=== PATIENT | male | born 1980 | race Two or more races ===

== ENCOUNTER 2020-07-07 04:26 | Day surgery (SDC) | payer OTHER ==
[2020-07-07 10:47] VITALS: BMI 29.7
[2020-07-07] MEDS ORDERED: MIDAZOLAM HCL 2 MG/2 ML SINGLE DOSE VIAL ONE (13:01)
[2020-07-07] MEDS ORDERED: PROPOFOL 20 ML ONE (13:01)
--- NOTE | 2020-07-07 14:10 | OP ---
Operative Note - Note: Operative Date: 07/07/20 Pre-Operative Diagnosis: Right renal stone Operation: Right ESWL Findings: 7 mm lower pole renal stone Post-Operative Diagnosis: Same as Pre-op Surgeon: Ronnell Grande Anesthesia: Regional Estimated Blood Loss (mls): 0 Operative Report Dictated: Yes
[2020-07-07 14:54] VITALS: BP 120/72; PULSE 73; TEMP 97
--- NOTE | 2020-07-07 17:22 | OP ---
DATE OF OPERATION: 07/07/2020 PREOPERATIVE DIAGNOSIS: Right renal stone. POSTOPERATIVE DIAGNOSIS: Right renal stone. PROCEDURE: Right extracorporeal shockwave lithotripsy. ATTENDING: Pee Grande M.D. ANESTHESIA: Fractional. DESCRIPTION OF PROCEDURE: Patient was brought in the operating room, placed in a supine position on the operating room table. Ultrasonography and fluoroscopy were performed. A right-sided lower pole stone was identified which measured 7 mm. Anesthesia and preoperative antibiotics were then administered. 2500 impulses at 17 joules of power were administered to the stone with excellent fragmentation noted under realtime ultrasonography and fluoroscopy. The patient tolerated the procedure very well. DISPOSITION: To recovery room. PEE DONALDSON M.D. [id number]
[2020-07-07] MEDS ORDERED: ONDANSETRON 4 MG/2 ML VIAL IVPUSH PRN (17:42)
[2020-07-07] MEDS ORDERED: oxyCODONE HCL 5 MG TABLET PO PRN (17:42)
[2020-07-07] MEDS ORDERED: ACETAMINOPHEN 325 MG TABLET (FP) PO PRN (17:42)
[2020-07-07] MEDS ORDERED: LACTATED RINGERS SOLUTION 1,000 ML IV SCH (17:45)
== END 2020-07-07 14:57 | disposition home or self-care (01) ==
LOC: JASU-SURG 04:26
PROVIDERS: ATTEND Urology
PROC: 0TF3XZZ Fragmentation in Right Kidney Pelvis, External Approach (ICD-10-PCS; principal; 2020-07-07 12:15)
DX: N20.0 Calculus of kidney (principal)

== ENCOUNTER 2020-12-16 13:15 | Inpatient (IN) | payer OTHER ==
[2020-12-16] MEDS ORDERED: SODIUM CHLORIDE 0.9% 500 ML INFUS.BAG IV ONE ×2 (13:55→15:42)
[2020-12-16] MEDS ORDERED: ONDANSETRON 4 MG/2 ML VIAL IVPUSH ONE (13:55)
[2020-12-16] MEDS ORDERED: PANTOPRAZOLE SODIUM 40 MG VIAL IVPUSH ONE (13:55)
[2020-12-16 15:19] LABS: INR 1.14 (0.83-1.09); PROTHROMBIN TIME (PATIENT) 13.7 SEC (9.7-13.0)
[2020-12-16 15:25] LABS: BASO % 1.1 % (0-2.0); EOS % 0.4 % (0-4.5); HEMATOCRIT 46.8 % (35.4-49); MCH 31.3 pg (25.7-33.7); MCHC 34.1 g/dl (32.0-35.9); MEAN CELL VOLUME 91.5 fl (80-96); MEAN PLT VOLUME 7.5 fl (7.5-11.1); MONO % 5.1 % (3.8-10.2); NEUT % 86.4 % (42.8-82.8); PLATELET COUNT 354 K/MM3 (134-434); RBC 5.12 M/mm3 (4.00-5.60); RDW 12.7 % (11.9-15.9); WHITE BLOOD COUNT 17.5 K/mm3 (4.0-10.0)
[2020-12-16 15:27] LABS: CALCIUM 9.8 mg/dL (8.5-10.1)
[2020-12-16 15:28] LABS: ALBUMIN 4.2 g/dl (3.4-5.0); BLOOD UREA NITROGEN 11.1 mg/dL (7-18)
[2020-12-16 15:30] LABS: CREATININE 1.3 mg/dL (0.55-1.3)
[2020-12-16 15:31] LABS: TOT PROT 7.5 g/dl (6.4-8.2)
[2020-12-16] MEDS ORDERED: morphine CARPU-JECT 2 MG/1 ML DISP.SYRIN IVPUSH ONE ×2 (15:59→20:41)
[2020-12-16] MEDS ORDERED: MORPHINE SULFATE 2 MG/ML VIAL ONE ×2 (17:44→20:46)
[2020-12-16] MEDS ORDERED: PIPERACILLIN/TAZOB 4.5 GM 4.5 GM in DEXTROSE 5%-WATER 100 ML IVPB ONE (18:34)
[2020-12-16] MEDS ORDERED: PIPERACILLIN/TAZOB 4.5 GM 4.5 GM/100 ML BAG IVPB ONE ×2 (18:41→18:53)
[2020-12-16] MEDS ORDERED: SODIUM CHLORIDE 1,000 ML IV SCH ×3 (18:45→22:45)
[2020-12-16 19:59] LABS: INR 1.16 (0.83-1.09)
[2020-12-16 20:01] LABS: ACTIVATED PTT 32.8 SECONDS (25.2-36.5)
[2020-12-16 20:12] LABS: PH,URINE 7.5 (5.0-8.0); URINE APPEARANCE Clear; URINE BILIRUBIN Negative (NEGATIVE); URINE COLOR Yellow; URINE GLUCOSE (UA) Negative (NEGATIVE); URINE KETONE 1+ (NEGATIVE); URINE LEUK ESTERASE Negative (NEGATIVE); URINE NITRITE Negative (NEGATIVE); URINE PROTEIN Negative (NEGATIVE); URINE UROBILINOGEN 0.2 mg/dL (0.2-1.0)
[2020-12-16] MEDS ORDERED: MORPHINE SULFATE 2 MG/ML VIAL IVPUSH PRN (21:12)
[2020-12-17 01:31] VITALS: BMI 29.9
[2020-12-17] MEDS ORDERED: PIPERACILLIN/TAZOB 3.375 GM 3.375 GM in DEXTROSE 5%-WATER - 50 ML IVPB SCH ×2 (02:00→18:00)
[2020-12-17] MEDS ORDERED: DEXTROSE 5%-WATER - 50 ML IVPB ONE ×3 (02:07→16:59)
[2020-12-17] MEDS ORDERED: PIPERACILLIN/TAZOBACTAM 3.375 GM VIAL IVPB ONE ×3 (02:07→16:59)
[2020-12-17] MEDS: PIPERACILLIN/TAZOB 3.375 GM 3.375 GM in DEXTROSE 5%-WATER - 50 ML IVPB SCH ×2 (02:20→09:04)
[2020-12-17 07:52] LABS: EOS % 0.8 % (0-4.5); HEMATOCRIT 40.3 % (35.4-49); HEMOGLOBIN 13.8 GM/dL (11.7-16.9); LYMPH % 11.7 % (8-40); MCH 31.8 pg (25.7-33.7); MCHC 34.3 g/dl (32.0-35.9); MEAN CELL VOLUME 92.9 fl (80-96); MEAN PLT VOLUME 7.7 fl (7.5-11.1); MONO % 6.6 % (3.8-10.2); NEUT % 79.9 % (42.8-82.8); PLATELET COUNT 323 K/MM3 (134-434); RBC 4.34 M/mm3 (4.00-5.60); RDW 12.5 % (11.9-15.9); WHITE BLOOD COUNT 13.1 K/mm3 (4.0-10.0)
[2020-12-17 08:06] LABS: CHLORIDE 107 mmol/L (98-107); SODIUM 140 mmol/L (136-145)
[2020-12-17 08:07] LABS: INR 1.17 (0.83-1.09); PROTHROMBIN TIME (PATIENT) 14.3 SEC (9.7-13.0)
[2020-12-17 08:10] LABS: ACTIVATED PTT 31.9 SECONDS (25.2-36.5)
[2020-12-17 08:13] LABS: ALBUMIN 3.6 g/dl (3.4-5.0); CALCIUM 9.1 mg/dL (8.5-10.1)
[2020-12-17 08:15] LABS: ANION GAP 6 MMOL/L (8-16); BLOOD UREA NITROGEN 11.5 mg/dL (7-18); CO2 28 mmol/L (21-32); GLUCOSE,RANDOM 68 mg/dL (74-106); MAGNESIUM 2.6 mg/dL (1.8-2.4)
[2020-12-17 08:16] LABS: SGPT/ALT 36 U/L (13-61)
[2020-12-17 08:17] LABS: CREATININE 1.3 mg/dL (0.55-1.3); PHOSPHOROUS 3.5 mg/dL (2.5-4.9); SGOT/AST 13 U/L (15-37)
[2020-12-17 08:18] LABS: BILIRUBIN,TOTAL 1.4 mg/dL (0.2-1); TOT PROT 6.4 g/dl (6.4-8.2)
[2020-12-17 08:20] LABS: ALK PHOS 53 U/L (45-117)
[2020-12-17] MEDS ORDERED: IBUPROFEN 800 MG/8 ML IJ IVPB PRN (09:25)
[2020-12-17] MEDS ORDERED: LACTATED RINGERS SOLUTION 1,000 ML IV SCH (09:30)
[2020-12-17] MEDS ORDERED: LIDOCAINE HCL/PF 2% SDV 5ML VIAL ONE (09:41)
[2020-12-17] MEDS ORDERED: ROCURONIUM BROMIDE 50 MG/5 ML SYRINGE ONE (09:41)
[2020-12-17] MEDS ORDERED: PROPOFOL 20 ML ONE ×2 (09:41)
[2020-12-17] MEDS ORDERED: MIDAZOLAM HCL 2 MG/2 ML SINGLE DOSE VIAL ONE (09:41)
[2020-12-17] MEDS ORDERED: METOPROLOL TARTRATE 25 MG TABLET (FP) PO SCH (10:00)
[2020-12-17] MEDS ORDERED: morphine SULFATE 4 MG/ML VIAL IVPB PRN (11:26)
[2020-12-17] MEDS ORDERED: oxyCODONE HCL 5 MG TABLET PO PRN (11:26)
[2020-12-17] MEDS ORDERED: ONDANSETRON 4 MG/2 ML VIAL IVPUSH PRN (11:26)
[2020-12-17] MEDS ORDERED: DEXAMETHASONE SOD PHOSPHATE 4 MG/1 ML VIAL ONE (11:36)
[2020-12-17] MEDS ORDERED: KETOROLAC TROMETHAMINE 30 MG/1 ML VIAL ONE (11:51)
[2020-12-17] MEDS ORDERED: GLYCOPYRROLATE 0.2 MG/1 ML VIAL ONE (11:51)
[2020-12-17] MEDS ORDERED: NEOSTIGMINE METHYLSULFATE 0.5 MG/ML - 10 ML MDV ONE (11:51)
[2020-12-17] MEDS: SODIUM CHLORIDE 1,000 ML IV SCH (14:18)
[2020-12-17] MEDS: METOPROLOL TARTRATE 25 MG TABLET (FP) PO SCH (21:34)
[2020-12-18] MEDS: ACETAMINOPHEN 325 MG TABLET (FP) PO PRN ×3 (02:00→21:40)
[2020-12-18] MEDS: PANTOPRAZOLE SODIUM 40 MG VIAL IVPUSH SCH (09:56)
[2020-12-18] MEDS: ENOXAPARIN NA (PORCINE) 40 MG/0.4 ML DISP.SYRIN SQ SCH (09:56)
[2020-12-18] MEDS: METOPROLOL TARTRATE 25 MG TABLET (FP) PO SCH (09:56)
[2020-12-18] MEDS: SODIUM CHLORIDE 1,000 ML IV SCH (14:15)
[2020-12-18] MEDS ORDERED: PIPERACILLIN/TAZOBACTAM 3.375 GM VIAL IVPB ONE (16:33)
[2020-12-18] MEDS ORDERED: DEXTROSE 5%-WATER - 50 ML IVPB ONE (16:33)
[2020-12-18] MEDS: PIPERACILLIN/TAZOB 3.375 GM 3.375 GM in DEXTROSE 5%-WATER - 50 ML IVPB SCH (17:47)
[2020-12-18] MEDS: METOPROLOL TARTRATE 50 MG TABLET (FP) PO SCH (21:40)
[2020-12-19] MEDS ORDERED: PIPERACILLIN/TAZOBACTAM 3.375 GM VIAL IVPB ONE ×2 (02:07→08:59)
[2020-12-19] MEDS ORDERED: DEXTROSE 5%-WATER - 50 ML IVPB ONE ×2 (02:08→09:00)
[2020-12-19] MEDS: PIPERACILLIN/TAZOB 3.375 GM 3.375 GM in DEXTROSE 5%-WATER - 50 ML IVPB SCH ×2 (02:45→09:06)
[2020-12-19] MEDS: METOPROLOL TARTRATE 50 MG TABLET (FP) PO SCH (09:03)
[2020-12-19] MEDS: PANTOPRAZOLE SODIUM 40 MG VIAL IVPUSH SCH (09:04)
[2020-12-19] MEDS: ENOXAPARIN NA (PORCINE) 40 MG/0.4 ML DISP.SYRIN SQ SCH (09:04)
[2020-12-19 09:58] VITALS: BP 158/93; PULSE 68; TEMP 98.4
== END 2020-12-19 13:12 | disposition home or self-care (01) | DRG 225 ==
LOC: JER 13:15 → JERBED 20:32 → J6S 12-17 01:06
PROVIDERS: ADMIT Internal Medicine; ATTEND Family Medicine
PROC: 0DTJ4ZZ Resection of Appendix, Percutaneous Endoscopic Approach (ICD-10-PCS; principal; 2020-12-17 09:30)
DX: K35.80 Unspecified acute appendicitis (principal); I71.00 Dissection of unspecified site of aorta; N40.0 Benign prostatic hyperplasia without lower urinary tract symptoms; I10 Essential (primary) hypertension; R10.31 Right lower quadrant pain; R01.1 Cardiac murmur, unspecified
CPT/HCPCS: 36415; 71046-TC-FY; 71275-TC; 74174-TC; 74177-TC; 80053; 81003; 83690; 83735; 84100; 84702; 85025; 85610; 85730; 86850; 86900; 86901; 93005; 93010; 94010; 94760; 99285-25; C9803; Q9967; U0003

== ENCOUNTER 2022-12-20 04:23 | Day surgery (SDC) | payer OTHER ==
[2022-12-15 17:59] VITALS: BMI 30.4
[2022-12-20 12:29] VITALS: RESP 20
[2022-12-20] MEDS ORDERED: MIDAZOLAM HCL 2 MG/2 ML SINGLE DOSE VIAL ONE (14:45)
[2022-12-20 15:59] VITALS: BP 155/78; PULSE 68; TEMP 97.9
== END 2022-12-20 16:07 | disposition home or self-care (01) ==
LOC: JASU-SURG 04:23
PROVIDERS: ATTEND Urology
PROC: 0TF4XZZ Fragmentation in Left Kidney Pelvis, External Approach (ICD-10-PCS; principal; 2022-12-20 13:30)
DX: N20.0 Calculus of kidney (principal)